=== PATIENT | female | born 1955 | race Caucasian/White ===

== ENCOUNTER 2020-06-14 10:29 | Inpatient (IN) ==
--- NOTE | 2020-05-24 15:51 | PAT Medication Instructions ---
Medication Instructions Date of Service May 24, 2020 Home Medications Lactobacillus acidophilus [Probiotic] 1 cell PO QAM calcium carbonate-vitamin D3 [Calcium 600 + D(3)] 1 cap PO HS colchicine 0.6 mg PO BID folic acid 1 mg PO QAM hydrochlorothiazide 25 mg PO QAM hydroxychloroquine 200 mg PO BID magnesium 250 mg PO HS methotrexate sodium 2.5 mg PO UD naproxen 500 mg PO BID PRN omeprazole 20 mg PO BID turmeric-herbal complex no.278 150 mg PO QPM venlafaxine 75 mg PO QAM ASK your surgeon for instructions naproxen 500 mg PO BID PRN ASK your prescriber and surgeon hydroxychloroquine 200 mg PO BID methotrexate sodium 2.5 mg PO UD DO NOT take the morning of surgery Lactobacillus acidophilus [Probiotic] 1 cell PO QAM colchicine 0.6 mg PO BID folic acid 1 mg PO QAM hydrochlorothiazide 25 mg PO QAM Take morning of surgery With a small sip of water, OTHERWISE NOTHING TO EAT OR DRINK AFTER MIDNIGHT: omeprazole 20 mg PO BID venlafaxine 75 mg PO QAM Take evening before surgery calcium carbonate-vitamin D3 [Calcium 600 + D(3)] 1 cap PO HS colchicine 0.6 mg PO BID magnesium 250 mg PO HS omeprazole 20 mg PO BID Other Notes If you have any questions please call us at [phone] or [phone] or [phone] or [phone]
--- NOTE | 2020-05-25 10:03 | Anesthesiology Consultation ---
Date of Service May 25, 2020 Assessment & Plan (1) Encounter for pre-operative examination: Chart Review Chart Review: Acceptable Risk for Surgery (pending preop Covid testing ) and Patient seen in Pre Admission Testing Per PAT appt 05/25/20, no recent travel. Educated patient to follow up with surgeon's office regarding Covid testing. Educated on importance of self quarantining, social distancing and wearing mask in public both for the patient and household contacts. Teaching & Discussion Pre-Anesthesia Teaching/Discussion Notes: Instructed NPO after midnight before surgery,except medications with 15 cc of water. Medication instructions provided according to the [facility] guidelines. History Surgery Operation Date: 06/14/20 12:45 Proposed Procedures p Right Reverse Total Shoulder Arthroplasty - Rajan Beltran, Height/Weight Height: 5 ft 6 in Weight: 105.4 kg Allergies Allergy/AdvReac Type Severity Reaction Status Date / Time No Known Allergies Allergy Verified 06/14/20 10:46 Medications Home Medications Medication Instructions Recorded Confirmed Last Taken Lactobacillus acidophilus 1 cell PO QAM 05/18/20 06/14/20 06/06/20 08:00 [Probiotic] calcium carbonate-vitamin D3 1 cap PO HS 05/18/20 06/14/20 06/13/20 21:00 [Calcium 600 + D(3)] colchicine 0.6 mg PO BID 05/18/20 06/14/20 06/13/20 21:00 folic acid 1 mg PO QAM 05/18/20 06/14/20 06/07/20 09:00 hydrochlorothiazide 25 mg PO QAM 05/18/20 06/14/20 06/13/20 08:00 hydroxychloroquine 200 mg PO BID 05/18/20 06/14/20 06/12/20 21:00 magnesium 250 mg PO HS 05/18/20 06/14/20 06/06/20 08:00 methotrexate sodium 2.5 mg PO UD 05/18/20 06/14/20 06/05/20 08:00 naproxen 500 mg PO BID PRN 05/18/20 06/14/20 06/06/20 12:00 omeprazole 20 mg PO BID 05/18/20 06/14/20 06/14/20 07:00 turmeric-herbal complex no.[id number] 150 mg PO QPM 05/18/20 06/14/2006/06/20 08:00 venlafaxine 75 mg PO QAM 05/18/20 06/14/20 06/14/20 07:00 Active Medications Generic Name Dose Route Start Last Admin Trade Name Rene PRN Reason Stop Dose Admin Acetaminophen 1,000 mg 06/14/20 06:00 06/14/20 11:11 Tylenol PO 06/14/20 18:00 1,000 mg PREOP APOLINAR Administration Dexamethasone 8 mg 06/14/20 06:00 06/14/20 11:11 Decadron PO 06/14/20 18:00 8 mg PREOP APOLINAR Administration Famotidine 20 mg 06/14/20 06:00 06/14/20 11:12 Pepcid PO 06/14/20 18:00 20 mg PREOP APOLINAR Administration Gabapentin 300 mg 06/14/20 06:00 06/14/20 11:11 Neurontin PO 06/14/20 18:00 300 mg PREOP APOLINAR Administration Lactated Ringer's 1,000 mls @ 60 mls/hr 06/14/20 06:00 06/14/20 11:15 Lr IV 06/14/20 22:39 Not Given .[id number] APOLINAR Lactated Ringer's 1,000 mls @ 15 mls/hr 06/14/20 06:00 06/14/20 11:10 Lr IV 06/15/20 05:59 15 mls/hr .Q24H APOLINAR Administration Past Medical History Medical History Anxiety Barretts esophagus EGD stable q 2 years- stable ; reflux well controlled with meds Hypertension Osteoarthritis Rheumatoid arthritis Follows with rheum Sleep apnea DOES NOT USE DEVICE- COULD NOT TOLERATE Exercise / Class Metabolic Activity II 4-5 Yardwork/Stairs/Walk up hill (ONE FLIGHT OR STAIRS- NO CHEST PAIN OR SOB ) Past Family History Family History Other No significant family history Past Surgical History Surgical History H/O foot surgery RT X 3/LEFT X 2 History of bilateral tubal ligation History of cardiac cath "YEARS AGO IN [place]"/NO STENTS History of cataract surgery RT/LEFT History of cholecystectomy History of colonoscopy History of dilatation and curettage "SEVERAL" History of esophagogastroduodenoscopy (EGD) History of hemorrhoidectomy History of tonsillectomy History of tooth extraction Nausea and vomiting after administration of anesthetic agent [place] teeth removed Past Anesthesia History No Hx of Anesthesia Complications (BESIDES PONV) and No Family Hx of Anesthesia Complications (BESIDES MOTHER - HAD PONV ) History of PONV History of PONV (WELL CONTROLLED WITH IV MEDS ) and Hx of Motion Sickness (ON BOATS- WEARS SCOP PATCH ) Social History Smoking Status: Former smoker tobacco type: cigarettes Do You Dip or Chew Tobacco: No Smoking End Date: 1999- ONLY SMOKED ONE YEAR Hx Alcohol Use: Yes Alcohol type: wine alcohol intake frequency: a few times a week Hx Substance Use: No substance use type: does not use Review of Systems Patient denies chest pain, shortness of breath, dyspnea on exertion, cough, wheezing, palpitations. No hx of seizures, stroke, [place]. No hx of blood clots or blood transfusions Physical Exam Vital Signs Last Vital Signs Temp 36.8 C 06/14/20 11:08 Pulse 90 06/14/20 11:29 Resp 20 06/14/20 11:29 BP 120/95 06/14/20 11:29 Pulse Ox 95 06/14/20 11:29 VITALS BP 116/80 P 83 TEMP 97.9 SP02 94% RESP 16 Constitutional + obese; no acute distress ENMT Mouth: no TMJ clicking Thyromental Distance: > or= 3.5 Finger Breadths (3.5) Mallampati Class: III Missing molar Crowns on molars Neck neck extension not limited Respiratory normal respiratory effort; no respiratory distress Auscultation: lungs clear to auscultation bilaterally; no wheezes Cardiovascular Rate/Rhythm: regular rate and regular rhythm Heart Sounds: no murmur Vessels: no carotid bruit Musculoskeletal Spine: no pain with cervical ROM Neurologic moves all extremities Psychiatric Orientation: alert Testing Laboratory Results 05/25/20 10:15 05/25/20 10:15 PT 10.5 Seconds (9.0-12.0) 05/25/20 10:15 INR 1.0 (0.9-1.1) 05/25/20 10:15 APTT 28.9 Seconds (21.0-31.0) 05/25/20 10:15 Blood Type O Positive 05/25/20 10:15 Antibody Screen NEGATIVE 05/25/20 10:15 Electrocardiogram Date: 05/25/20 Findings: + NSR @ (83) Minimal voltage criteria for LVH, may be normal variant. Chest X-Ray Date: 05/25/20 Findings: + NAD Cervical Spine Date: 05/25/20 No evidence for cervical spine instability during flexion or extension. Note is made of mild reversal the normal cervical lordosis. There is mild anterolisthesis of C3 on C4 due to facet arthrosis. Severe multilevel facet arthrosis is noted. There is moderate to severe multilevel disc space narrowing.
[2020-05-25 11:19] LABS: Basophils # (auto) 0.04 K/uL (0-0.2); Basophils % (auto) 0.7 %; Eosinophils # (auto) 0.28 K/uL (0-0.5); Eosinophils % (auto) 5.2 %; Hematocrit (blood only) 47.7 % (37-47); Hemoglobin 15.8 g/dL (12.0-16.0); Immature Granulocytes # (auto) 0.01 K/uL (0.00-0.02); Immature Granulocytes % (auto) 0.2 %; Lymphocytes # (auto) 1.56 K/uL (1.2-3.4); Lymphocytes % (auto) 28.8 %; Mean Corpuscular Hemoglobin 31.7 pg (25-34); Mean Corpuscular Hgb Conc 33.1 g/dL (32-36); Mean Corpuscular Volume 95.8 fL (80-100); Mean Platelet Volume 10.2 fL (7.4-10.4); Monocytes # (auto) 0.53 K/uL (0.11-0.59); Monocytes % (auto) 9.8 %; Neutrophils # (auto) 2.99 K/uL (1.4-6.5); Neutrophils % (auto) 55.3 %; Platelet Count 215 K/uL (130-400); RDW Coefficient of Variation 13.6 % (11.5-14.5); RDW Standard Deviation 47.3 fL (36.4-46.3); Red Blood Count 4.98 M/uL (4.2-5.4); White Blood Count 5.41 K/uL (4.8-10.8)
[2020-05-25 11:26] LABS: BUN Creatinine Ratio 34.7 (10-20); Creatinine Clr Calc Pharmacy 111.3 ml/min; Est GFR (African American) 109.5; Est GFR (Non-African American) 94.5; Potassium 4.2 mmol/L (3.5-5.1)
[2020-05-25 11:29] LABS: Partial Thromboplastin Time 28.9 Seconds (21.0-31.0); Prothrombin Time 10.5 Seconds (9.0-12.0)
--- NOTE | 2020-05-25 11:42 | XRay Report ---
XR chest Pre-admission PA/Lat CLINICAL HISTORY: Preoperative evaluation. COMPARISON STUDY: No previous studies for comparison. FINDINGS: Lung volumes are normal. Lungs are clear. There is no pneumothorax or pleural effusion. Car diac size is normal. Mediastinal contours are normal. There is no evidence for pulmonary edema. Incid ental note is made of cholecystectomy clips. IMPRESSION: No acute cardiopulmonary findings. ACT 112: Negative or not required by law. Electronically signed by: Smith Weir M.D. 05/25/2020 11:41 AM
--- NOTE | 2020-05-25 11:44 | XRay Report ---
LATERAL CERVICAL SPINE RADIOGRAPHS WITH FLEXION AND EXTENSION CLINICAL HISTORY: Preoperative evaluation. COMPARISON STUDY: No previous studies for comparison. FINDINGS: Note is made of mild reversal the normal cervical lordosis. There is mild anterolisthesis o f C3 on C4 due to facet arthrosis. There is no evidence for cervical spine instability during flexion or extension. C1-2 alignment does not change with flexion or extension. Severe multilevel facet arth rosis is noted. There is moderate to severe multilevel disc space narrowing. No fracture or suspiciou s lesion is noted. Inferior endplate of C7 is slightly obscured. Paravertebral soft tissues are unrem arkable. IMPRESSION: 1. No evidence for cervical spine instability during flexion or extension. 2. Severe multilevel degenerative changes within the cervical spine. ACT 112: Negative or not required by law. Electronically signed by: Smith Weir M.D. 05/25/2020 11:43 AM
--- NOTE | 2020-05-26 05:54 | Electrocardiogram Report ---
Test Reason : Blood Pressure : / mmHG Vent. Rate : 083 BPM Atrial Rate : 083 BPM P-R Int : 178 ms QRS Dur : 094 ms QT Int : 396 ms P-R-T Axes : 048 -20 031 degrees QTc Int : 465 ms Normal sinus rhythm Minimal voltage criteria for LVH, may be normal variant Borderline ECG No previous ECGs available Confirmed by Destin Headley ([id number]) on 05/26/2020 5:54:05 AM Referred By: Rajan Beltran Confirmed By:Destin Headley
--- NOTE | 2020-06-09 09:06 | History & Physical Report ---
Date of Service June 09, 2020 Assessment & Plan (1) Rotator cuff arthropathy of right shoulder: We will proceed with a right reverse shoulder arthroplasty. Postoperatively she will be placed in a sling and kept overnight in the hospital for postoperative medical management. She plans to use energy physical therapy upon discharge. Present on Admission?: Yes History of Present Illness Chief Complaint: Rotator cuff arthropathy of the right shoulder Primary Care Provider: Umm Perdomo DO Brisa is a pleasant 64-year-old female who is been dealing with chronic increasing right shoulder pain and weakness. She has a long history of rheumatoid arthritis. She injured her shoulder about 2 years ago and has been having shoulder pain since. MRI of her shoulder shows a massive rotator cuff tear. After failing conservative treatment, she has elected to proceed with a right reverse shoulder arthroplasty. Allergies Allergy/AdvReac Type Severity Reaction Status Date / Time No Known Allergies Allergy Verified 05/18/20 12:03 Home Medications Home Medications Medication Instructions Recorded Confirmed Type Lactobacillus acidophilus 1 cell PO QAM 05/18/20 05/25/20 History [Probiotic] calcium carbonate-vitamin D3 1 cap PO HS 05/18/20 05/25/20 History [Calcium 600 + D(3)] colchicine 0.6 mg PO BID 05/18/20 05/25/20 History folic acid 1 mg PO QAM 05/18/20 05/25/20 History hydrochlorothiazide 25 mg PO QAM 05/18/20 05/25/20 History hydroxychloroquine 200 mg PO BID 05/18/20 05/25/20 History magnesium 250 mg PO HS 05/18/20 05/25/20 History methotrexate sodium 2.5 mg PO UD 05/18/20 05/25/20 History naproxen 500 mg PO BID PRN 05/18/20 05/25/20 History omeprazole 20 mg PO BID 05/18/20 05/25/20 History turmeric-herbal complex no.278 150 mg PO QPM 05/18/20 05/25/20 History venlafaxine 75 mg PO QAM 05/18/20 05/25/20 History Past Med/Surg History Medical History Anxiety Barretts esophagus EGD stable q 2 years- stable ; reflux well controlled with meds Hypertension Osteoarthritis Rheumatoid arthritis Follows with rheum Sleep apnea DOES NOT USE DEVICE- COULD NOT TOLERATE Surgical History H/O foot surgery RT X 3/LEFT X 2 History of bilateral tubal ligation History of cardiac cath "YEARS AGO IN [place]"/NO STENTS History of cataract surgery RT/LEFT History of cholecystectomy History of colonoscopy History of dilatation and curettage "SEVERAL" History of esophagogastroduodenoscopy (EGD) History of hemorrhoidectomy History of tonsillectomy History of tooth extraction Nausea and vomiting after administration of anesthetic agent [place] teeth removed Family History Other No significant family history Social History Smoking Status: Former smoker Second Hand Exposure: No; Hx Alcohol Use: Yes Alcohol type: wine Hx Substance Use: No Preferred Language: [employer] Required: No Beliefs That Will Affect Care: None Current Living Situation: Spouse Feels Safe at Home: Yes Review of Systems Review of Systems: All systems reviewed & are unremarkable except as noted in HPI & below Physical Exam Constitutional: WD/WN, vitals as above Eyes: PERRL, conjunctivae normal, anicteric sclerae ENMT: external ear and nose normal, oropharynx normal Neck: trachea midline, no thyromegaly Respiratory: normal respiratory effort Cardiovascular: RRR, no murmur, no edema Gastrointestinal (Abdomen): normal bowel sounds, soft, nontender, no hepatosplenomegaly Musculoskeletal: Physical examination of the right shoulder reveals decreased range of motion and significant weakness. There is tenderness palpation along the anterior glenohumeral joint line. The right upper extremity is neurovasc ularly intact. Psychiatric: A+Ox3, euthymic affect Results & Data Results & Data ([facility]) Diagnostic Findings Radiographs of the right shoulder show some signs of osteoarthritis with blunting of the greater tuberosity and some superior migration of the humeral head on the glenoid. PG Care Time/CCT Total # of Minutes Spent Total Time Spent with Patient: Total time spent is greater than 50% in coordination of care (as documented) at patient's floor/unit and/or counseling patient: Coding Level of Care Code 26087 Initial Inpt Care Lvl 3 Diagnoses Rotator cuff arthropathy of right shoulder M12.811
[~2020-06-14 10:29] MED LIST: ACETAMINOPHEN 500 MG TAB PO SCH; ATROPINE SULFATE 0.1 MG/ML 10ML SYR IV PRN; BUPIVACAINE 0.5 % 5 MG/1 ML PF 10ML VIAL ONE; CEFAZOLIN 2000MG 2,000 MG/15 ML SYR IV SCH; FAMOTIDINE 20 MG TAB PO SCH; GABAPENTIN 300 MG CAP PO SCH; HYDROmorphone INJ 1 MG/ML SYRINGE IV PRN; LR 15ML/HR IV SCH; LR 60ML/HR IV SCH; ONDANSETRON INJ 2 MG/ML 2 ML VIAL IV PRN; ROPIVACAINE 0.5% HCL/PF 150 MG, BUPIVACAINE 0.5% MPF 30 ML, EPINEPHrine 30MG/30ML (OR U... INSTIL SCH; TRANEXAMIC ACID 1,000 MG **IV Intra-op IV SCH; TRANEXAMIC ACID 1,000 MG **IV Pre-op IV SCH; dexAMETHasone 4 MG TAB PO SCH; ePHEDrine sulfate 50 MG/ML AMP IV PRN; fentaNYL citrate 100 MCG/2 ML VIAL IV PRN
--- NOTE | 2020-06-14 10:33 | History & Physical Bridge Note ---
Date of Service June 14, 2020 History & Physical Bridge Note I have examined the patient, reviewed the History & Physical and in the interval since the performance of the History & Physical I have noted the following changes of clinical significance: no changes noted
[2020-06-14] MEDS ORDERED: NEOSTIGMINE METHYLSULFATE 5 MG/5 ML SYR ONE (11:03)
[2020-06-14] MEDS ORDERED: LIDOCAINE HCL 2% 2 ML VIAL/AMP(20MG/ML) INFIL ONE (11:03)
[2020-06-14] MEDS ORDERED: ROCURONIUM BROMIDE 10 MG/ML 5 ML VIAL IV ONE (11:03)
[2020-06-14] MEDS ORDERED: GLYCOPYRROLATE 0.2 MG/ML VIAL ONE (11:03)
[2020-06-14] MEDS ORDERED: MIDAZOLAM HCL 1 MG/ML 2ML VIAL ONE (11:03)
[2020-06-14] MEDS ORDERED: ONDANSETRON INJ 2 MG/ML 2 ML VIAL ONE (11:03)
[2020-06-14] MEDS ORDERED: PROPOFOL IV EMULSION 10 MG/ML 20 ML VIAL IV ONE (11:03)
[2020-06-14] MEDS ORDERED: DEXAMETHASONE SOD INJ 4 MG/ML VIAL ONE (11:03)
[2020-06-14] MEDS ORDERED: ORTHO JOINT ANESTHETIC ONE (11:03)
[2020-06-14] MEDS ORDERED: ROPIVACAINE 0.5% 5 MG/ML 30 ML VIAL ONE (11:48)
[2020-06-14] MEDS ORDERED: EPINEPHrine INJ 1 MG/ML AMP ONE (11:48)
[2020-06-14] MEDS ORDERED: SCOPOLAMINE 1.5 MG TDSY TD ONE (11:49)
[2020-06-14] MEDS ORDERED: fentaNYL citrate 100 MCG/2 ML VIAL ONE ×2 (12:15→14:09)
[2020-06-14] MEDS ORDERED: SUCCINYLCHOLINE 100MG/5ML SYR IV ONE (13:33)
--- NOTE | 2020-06-14 14:02 | Operative Report ---
PG Post Operative Report Pre & Post Diagnosis Operation Date: 06/14/20 12:45 Pre-Op Diagnosis: Right Shoulder cuff tear arthropathy Post-Op Diagnosis: Right Shoulder cuff tear arthropathy I identified the patient and participated in the time-out.: Yes Procedure Operation Date: 06/14/20 12:45 Actual Procedures p Right Reverse Total Shoulder Arthroplasty(Right) - Rajan Beltran DO Surgeon Rajan Beltran DO It Support Technician Rajan Layne PAC Estimated Blood Loss 400 Findings Consistent with Post-Op Diagnosis Specimens Right humeral head Complications none Disposition Disposition: Recovery Room Indications Brisa is a pleasant 64-year-old female who presented my office with chronic increasing right shoulder pain and weakness. MRI, x-rays and clinical examination were all diagnostic for cuff arthropathy of the right shoulder. After failing conservative treatment, she elected proceed with a right reverse shoulder arthroplasty. Description of Procedure Implants used: I used a [employer] Comprehensive reverse total shoulder arthroplasty system with a size 10 press fit micro-humeral stem, a +6 offset humeral tray and a +3 humeral bearing, a 25 mm mini baseplate with a 6.5 mm central screw and superior and inferior locking screws, and a size 40 mm eccentric glenosphere. Brisa [facility] at [facility] for the above procedure. She was seen in the preoperative holding area and the operative extremity was identified and signed. She was given a preoperative antibiotic, TXA, and an interscalene nerve block. She was taken back to the operating room, laid on table in supine position, and put under general anesthesia. She was then put into the beachchair position. The shoulder was then prepped and draped in sterile fashion. A timeout was done and the patient and the operative extremity was properly identified. A deltopectoral approach was used. Dissection was taken down through the fascia and the deltoid was retracted laterally and the conjoined tendon was retracted medially. The anterior shoulder was exposed. The biceps tendon was absent and the subscapularis was already torn. The humeral head was chronically subluxated anteriorly. The inferior capsule was released and the humeral head was dislocated. A canal finding reamer was sent down the center of the humeral canal. Sequential reaming up to a size 10 reamer was done. Off that reamer, a proximal humeral resection guide was placed. The proximal humerus was resected at 135 of inclination and 25 of retroversion. Osteophytes were then removed and the glenoid was exposed. Time was spent doing a complete capsular and labral release. The glenoid guide was then placed in the inferior aspect of the glenoid. A 3.2 mm Steinmann pin was then placed into the glenoid vault at 10 of inclination. The glenoid baseplate was then reamed. The final size 25 mm mini baseplate was then impacted in the place. A 6.5 mm central screw was then placed followed by superior and inferior locking screws. A 40 mm eccentric glenosphere was then impacted into place. Surrounding soft tissues were then injected with 100 cc an orthopedic pain control cocktail. The proximal humerus was then exposed. Sequential broaching of the humerus up to a size 10 broach was done. Off that broach a +3 humeral tray with a +6 offset was trialed. The shoulder was then reduced, brought through a full range of motion, and felt to be stable. The shoulder was then dislocated and the broach was removed. The final size 10 micro press-fit humeral stem was then impacted into place. A +3 humeral bearing was then snapped onto a +6 offset humeral tray. The humeral tray was then impacted onto the humeral stem. The shoulder was once again reduced, brought through a full range of motion, and felt to be stable. The subscapularis was not repairable. A dilute betadyne lavage was then done for 3 minutes. The joint was then irrigated with normal saline solution. Hemostasis was obtained. The interval was closed with 2-0 Vicryl suture. The skin was then closed with 2-0 Vicryl and demetris. A Silverlon was placed and the arm was rested in a regular arm sling. She was then extubated and transferred to a hospital bed. She taken to the postanesthesia care unit in stable condition. She tolerated the procedure well. Rajan Layne PA-C, was present for the entire procedure. He was critical for patient positioning, prepping, draping, retraction exposure, wound closure and application of sterile dressing. I attest to the content of the Intraoperative Record and any orders documented therein. Any exceptions are noted below.
--- NOTE | 2020-06-14 14:46 | XRay Report ---
XR shoulder RT min 2V routine HISTORY: 64 years-old Female Post shoulder surgery right shoulder total joint arthroplasty COMPARISON: Chest radiographs 05/25/2020 TECHNIQUE: 2 views of the right shoulder FINDINGS: Reverse right shoulder total joint arthroplasty demonstrates satisfactory alignment. No acute fractur e. Overlying skin demetris are noted along with expected postsurgical soft tissue swelling and deep ti ssue air. No definite opaque foreign body identified. Moderate marginal spurring of the AC joint with mild joint space widening. The lungs appear to be hypoinflated. IMPRESSION: Reverse right shoulder total joint arthroplasty with expected postoperative changes. ACT 112: Negative or not required by law. The above report was generated using voice recognition software. It may contain grammatical, syntax o r spelling errors. Electronically signed by: Joshua Ferrer M.D. 06/14/2020 2:45 PM
[2020-06-14] MEDS ORDERED: NALOXONE HCL 0.4 MG/1 ML VIAL/CARP IV PRN (17:45)
[2020-06-14] MEDS ORDERED: bisacodyL 10 MG SUPP PR PRN (17:45)
[2020-06-14] MEDS ORDERED: METOCLOPRAMIDE HCL INJ 5 MG/ML 2 ML VIAL IV PRN (17:45)
[2020-06-14] MEDS ORDERED: MAGNESIUM HYDROXIDE SUSP 30 ML UDC PO PRN (17:45)
[2020-06-14] MEDS ORDERED: ONDANSETRON INJ 2 MG/ML 2 ML VIAL IV PRN (17:45)
[2020-06-14] MEDS ORDERED: HYDROmorphone INJ 0.5 MG/0.5 ML SYR IV PRN (17:45)
[2020-06-14] MEDS ORDERED: SODIUM CHLORIDE 0.9% 1000ML 1,000 ML IV SCH (17:45)
[2020-06-14] MEDS ORDERED: SENNA 8.6 MG TAB PO SCH (21:00)
[2020-06-14] MEDS ORDERED: MAGNESIUM OXIDE 400 MG TAB PO SCH (21:00)
[2020-06-14] MEDS: CEFAZOLIN 2000MG 2,000 MG/15 ML SYR IV SCH (21:21)
[2020-06-14] MEDS: KETOROLAC TROMETHAMINE 15 MG/ML VIAL IV SCH (21:21)
[2020-06-14] MEDS: ACETAMINOPHEN 500 MG TAB PO SCH (21:26)
[2020-06-14] MEDS: DOCUSATE SODIUM 100 MG CAP PO SCH (21:27)
[2020-06-14] MEDS: HYDROXYCHLOROQUINE SULFATE 200 MG TAB PO SCH (21:28)
[2020-06-14] MEDS: PANTOprazole 40 MG TAB PO SCH (21:28)
[2020-06-14] MEDS: COLCHICINE 0.6 MG TAB PO SCH (21:29)
[2020-06-15] MEDS: KETOROLAC TROMETHAMINE 15 MG/ML VIAL IV SCH ×3 (01:21→13:22)
[2020-06-15] MEDS: OXYCODONE HCL IR 5 MG TAB (IMMEDIATE RELEASE) PO PRN ×3 (03:37→13:20)
[2020-06-15] MEDS: CEFAZOLIN 2000MG 2,000 MG/15 ML SYR IV SCH (03:39)
[2020-06-15] MEDS: ACETAMINOPHEN 500 MG TAB PO SCH ×2 (05:58→13:20)
--- NOTE | 2020-06-15 06:51 | Orthopedic Progress Note ---
Date of Service June 15, 2020 Assessment & Plan (1) Status post reverse arthroplasty of right shoulder: Overall she is doing well. She denies any much pain in the right shoulder. She will be seen by physical therapy this morning for ambulation and range of motion exercises. She can be discharged home later today. She will follow-up with orthopedics in 2 weeks. Present on Admission?: Yes Subjective Brisa was seen and examined at bedside this morning. Overall she is doing very well. She is not having much pain in the right shoulder. She was able to get some sleep last night. She has no complaints. Physical Exam Musculoskeletal: On physical examination of the right shoulder, the Silverlon dressing is clean and dry. She is wearing her sling as instructed. Her radial, median, and ulnar nerves are checked intact at her wrist. Results & Data ([id number]) Vital Signs (Past 12 Hours) Vital Signs Temp Pulse Resp BP Pulse Ox 06/15/20 03:30 36.6 C 85 18 121/78 92 06/14/20 23:44 36.7 C 96 H 18 119/74 91 06/14/20 20:44 36.6 C 101 H 16 124/75 91 06/14/20 19:11 36.7 C 102 H 16 119/80 91 Diagnostic Findings Postoperative x-rays of the right shoulder show the prosthesis to be in anatomic alignment without any evidence of fracture, dislocation, or loosening. PG Care Time/CCT Total # of Minutes Spent Total Time Spent with Patient: Total time spent is greater than 50% in coordination of care (as documented) at patient's floor/unit and/or counseling patient: Coding Level of Care Code None Diagnoses Status post reverse arthroplasty of right shoulder Z96.611
--- NOTE | 2020-06-15 06:52 | Discharge Summary ---
Date of Service June 15, 2020 Admission HPI Per Admitting Provider Brisa is a pleasant 64-year-old female who is been dealing with chronic increasing right shoulder pain and weakness. She has a long history of rheumatoid arthritis. She injured her shoulder about 2 years ago and has been having shoulder pain since. MRI of her shoulder shows a massive rotator cuff tear. After failing conservative treatment, she has elected to proceed with a right reverse shoulder arthroplasty. Principal Diagnosis Right reverse shoulder replacement Discharge Data Allergies Allergy/AdvReac Type Severity Reaction Status Date / Time No Known Allergies Allergy Verified 06/14/20 10:46 Consultations 06/14/20 17:45 Consult Case Management - Discharge Planning Routine Procedures Performed Operation Date: 06/14/20 12:45 Actual Procedures p Right Reverse Total Shoulder Arthroplasty(Right) - Rajan Beltran DO Ordered Studies 06/14/20 05:00 US - OR guided needle placemen Routine 06/14/20 09:06 US - OR guided needle placemen Routine Hospital Course (1) Status post reverse arthroplasty of right shoulder: On June 14, 2020 Brisa arrived at [facility] and underwent a right reverse shoulder arthroplasty without complication. She had a general anesthetic and a right interscalene nerve block. Postoperatively she was placed in a sling and transferred to the general orthopedic floors. Her hospital course was uneventful. On postop day #1 her H&H was stable and her pain was well controlled. She was able to participate well with physical therapy doing ambulation and range of motion exercises. She was then discharged home. She will follow-up with orthopedics in 2 weeks. Total Time Total Time Spent Total Time Spent (In Minutes): 20 Discharge Plan Discharge Items Patient Disposition: Home - Home Health Services Reason For Visit: RIGHT SHOULDER DEGENERATIVE JOINT DISEASE Discharge Diagnosis: Right reverse shoulder replacement Activity: As commented below Non-emergency contact: Surgeon Call non-emergency contact if: your wound has increased redness and your wound has increased drainage Follow-up/Referrals: Umm Perdomo DO [Primary Care Provider] - Diet: Regular Addtl Attending Provider Instructions: Activity and Therapy Recommendations: * If you are using [facility] then therapy will be provided at your home until they feel you have accomplished all of your goals. * If you are using [facility] then Physical Therapy will be provided until they feel you are ready to start Outpatient Physical Therapy. * If you are not using home therapy then Outpatient Physical Therapy should start about 3-5 days from your day of surgery. Therapy will last about 8-12 weeks * Wear your sling for 3 weeks, unless otherwise instructed. You may remove your sling to shower and to dress, but otherwise, you should be in your sling at all times, including while sleeping * The shoulder replacement is very stable and you can use your hand while in the sling * You were shown a series of exercises in the hospital. Do these exercises daily including the exercises you were shown in physical therapy. Medications: * Narcotic You will likely be sent home from the hospital with a prescription for the narcotic pain medication that worked best throughout your stay. * Other medications may be prescribed for specific circumstances. If you have any questions, please call the office at . * Resume previous home medications unless otherwise instructed Dressing Care: Leave the Silverlon dressing in place for 7 days. After 7 days you may remove the dressing. If the incision is not draining then you may leave the demetris open to air. If there is a little bit of drainage or if the demetris are getting stuck on your clothing then cover the incision with a dry dressing. The demetris will be removed at your 2 week follow-up appointment. Showering: You may shower with the Silverlon dressing in place. Let the shower spray hit the other shoulder. You can pat the plastic dry. If the dressing becomes wet underneath the plastic then simply remove the dressing. Keep the incision dry until you are 7 days out from the day of surgery. At that time you can shower with the demetris exposed. Let the soapy shower water run over the demetris and pat them dry. Do not scrub or soak the incision. Things To Watch For: * Drainage from the incision site that occurs more than one week after your surgery. * Increased redness at the incision site. * Fever above 102 degrees Fahrenheit. * Unusual chest pain or shortness of breath. * Call [facility] at with any of the above problems Follow-Up Visit: Follow-up with Dr. Beltran's PA (Rajan Layne) 2-3 weeks after your day of surgery. He will remove your demetris and answer any questions. If you have any additional questions or concerns, Dr Beltran is usually in the office at the same time and will be available An appointment was probably scheduled when you signed-up for surgery in the office. If you have any questions call More detailed instructions as well as Frequently Asked Questions were provided in a folder by our office when you signed-up for surgery. Please review these instructions when you get home. If you have any further questions or concerns, please feel free to call the office at [phone] Pending Studies at Discharge: No Stand-Alone Forms: My [facility] Medications and DC Order Prescriptions: New oxycodone 5 mg Tablet 5 mg PO Q4H PRN (Reason: pain) Qty: 30 RF: 0 Continued methotrexate sodium 2.5 mg Tablet 2.5 mg PO UD RF: 0 omeprazole 20 mg Capsule,Delayed Release(Dr/Ec) 20 mg PO BID RF: 0 folic acid 1 mg Tablet 1 mg PO QAM RF: 0 magnesium 250 mg Tablet 250 mg PO HS RF: 0 hydrochlorothiazide 25 mg Tablet 25 mg PO QAM RF: 0 hydroxychloroquine 200 mg Tablet 200 mg PO BID RF: 0 colchicine 0.6 mg Tablet 0.6 mg PO BID RF: 0 naproxen 500 mg Tablet 500 mg PO BID PRN (Reason: Pain) RF: 0 Calcium 600 + D(3) 600 mg calcium- 200 unit Capsule 1 cap PO HS RF: 0 venlafaxine 75 mg Tablet Extended Release 24hr 75 mg PO QAM RF: 0 Probiotic 10 billion cell Capsule 1 cell PO QAM RF: 0 turmeric-herbal complex no.[id number] 150 mg Capsule 150 mg PO QPM RF: 0 Discharge Orders: Discharge Order (Routine); Ordered 06/15/20 Ordered By: Rajan Beltran Admission Data Admit Date/Time: 06/14/20 14:19 Attending Provider: Rajan Beltran Admit Provider: Rajan Beltran Primary Care Provider: Umm Perdomo Coding Level of Care Code D/C Day Management <30 mins Diagnoses Status post reverse arthroplasty of right shoulder Z96.611
[2020-06-15] MEDS ORDERED: PNEUMOCOCCAL Polysaccharide Vaccine 25mcg/0.5mL vial/Syr IM ONE (08:00)
[2020-06-15] MEDS ORDERED: dexAMETHasone 4 MG TAB PO SCH (08:00)
[2020-06-15 08:17] LABS: Basophils # (auto) 0.01 K/uL (0-0.2); Basophils % (auto) 0.1 %; Hematocrit (blood only) 43.6 % (37-47); Hemoglobin 14.3 g/dL (12.0-16.0); Immature Granulocytes # (auto) 0.03 K/uL (0.00-0.02); Immature Granulocytes % (auto) 0.2 %; Lymphocytes # (auto) 0.79 K/uL (1.2-3.4); Lymphocytes % (auto) 5.3 %; Mean Corpuscular Hemoglobin 31.1 pg (25-34); Mean Corpuscular Hgb Conc 32.8 g/dL (32-36); Mean Corpuscular Volume 94.8 fL (80-100); Mean Platelet Volume 9.7 fL (7.4-10.4); Monocytes % (auto) 4.7 %; Neutrophils # (auto) 13.26 K/uL (1.4-6.5); Neutrophils % (auto) 89.7 %; Platelet Count 213 K/uL (130-400); RDW Coefficient of Variation 13.4 % (11.5-14.5); White Blood Count 14.79 K/uL (4.8-10.8)
[2020-06-15 08:48] LABS: BUN Creatinine Ratio 22.4 (10-20); Calcium 8.7 mg/dl (8.5-10.1); Creatinine Clr Calc Pharmacy 90.7 ml/min; Est GFR (African American) 96.3; Est GFR (Non-African American) 83.1; Potassium 3.8 mmol/L (3.5-5.1)
[2020-06-15] MEDS ORDERED: MULTIVITAMIN TAB PO SCH (09:00)
[2020-06-15] MEDS ORDERED: VENLAFAXINE HCL XR 75 MG CAPXR PO SCH (09:00)
[2020-06-15] MEDS ORDERED: hydroCHLOROthiazide 25 MG TAB PO SCH (09:00)
[2020-06-15] MEDS ORDERED: FOLIC ACID 1 MG TAB PO SCH (09:00)
[2020-06-15] MEDS: DOCUSATE SODIUM 100 MG CAP PO SCH (09:14)
[2020-06-15] MEDS: COLCHICINE 0.6 MG TAB PO SCH (09:15)
[2020-06-15] MEDS: PANTOprazole 40 MG TAB PO SCH (09:16)
[2020-06-15] MEDS: HYDROXYCHLOROQUINE SULFATE 200 MG TAB PO SCH (09:16)
[2020-06-18] MEDS ORDERED: metHOTREXate sodium 2.5 MG TAB PO SCH (09:00)
--- NOTE | 2020-06-27 12:24 | Coding Query ---
CODING QUERY To promote full compliance with coding requirements relating to patient care, provider participation is requested in all cases of whale trainer uncertainty. Please assist us with the question(s) below: Coding Question(s): There is documentation in the record of Rotator Cuff Arthropathy of Right Shoulder and documentation that she injured her shoulder about 2 years ago and has been having pain ever since and MRI showing massive rotator cuff tear. Please specify below, in your clinical opinion, regarding the Right Shoulder Arthropathy. (X ) Post-traumatic Arthropathy ( ) Arthropathy is not post-traumatic ( ) Other Arthropathy: Please Specify Physician's Response(s): Thank you Marly Kelly Principal Diagnosis: "that condition established after study, to be chiefly responsible for occasioning the admission of the patient to the hospital for care." Co-Existing Principal Diagnosis: "when two or more diagnoses equally meet the criteria for principal diagnosis as determined by the circumstances of admission, diagnostic work up, and/or therapy provided, and the Alphabetic Index, Tabular List, or another coding guideline does not provide sequencing direction, any one of the diagnoses may be sequenced first." "When the physician has documented what appears to be a current diagnosis in the body of the record, but has not included the diagnosis in the final diagnostic statement, the physician should be asked whether the diagnosis should be added." (Source [facility]oding [facility] 2 QTR90. p3-4) ERICA
--- NOTE | 2020-07-18 13:52 | Anesthesiology Progress Note ---
Date of Service July 18, 2020 Anesthesia Post Procedure Pain Intensity Right Shoulder: Pain Intensity: 6 Transfer of Care Handoff Completed per policy Notes Mental Status: alert / awake / arousable and participated in evaluation Patient Amnestic to Procedure: Yes Nausea / Vomiting: adequately controlled Pain: adequately controlled Airway Patency, RR, SpO2: stable & adequate BP & HR: stable & adequate Hydration State: stable & adequate Anesthetic Complications: no major complications apparent and Pt Satisfied with anesthetic care
== END 2020-06-15 13:58 | disposition home health service (06) | DRG 483 ==
LOC: ASU 10:29 → 3N 14:19